=== PATIENT | female | born 1970 | race Caucasian/White ===

== ENCOUNTER 2019-11-25 14:47 | Outpatient (CLI) | payer OTHER, SELFPAY ==
--- NOTE | ~2019-11-25 | XR_ITS ---
XR lumbar spine 2-3V DATE: 11/25/2019 15:14 INDICATION: Back pain, worse on the left TECHNIQUE: AP, lateral, coned lateral lumbosacral views COMPARISON: 08/26/2016 MRI lumbar spine FINDINGS: There is rotatory levoscoliosis of the lower thoracic and lumbar spine measuring 21 degrees from T12 to L4. There is moderate degenerative disc disease throughout the lumbar and lumbosacral spine. No fracture or bone destruction or spondylolisthesis. The included lower thoracic and lumbar pedicles are intact. The sacroiliac joints appear normal. IMPRESSION: 21 degrees rotatory levoscoliosis of the lower thoracic and lumbar spine Multilevel degenerative disc disease Reviewed, dictated and finalized at location B.
== END 2019-11-25 14:48 | disposition home or self-care (01) ==
LOC: ANHIMG 14:55
PROVIDERS: PCP Internal Medicine; Visit Provider Clinical Nurse Specialist
DX: M51.36 Other intervertebral disc degeneration, lumbar region (principal)
CPT/HCPCS: 72100

== ENCOUNTER 2020-03-26 12:07 | Outpatient (NON) | payer OTHER, SELFPAY ==
[2020-03-27 06:43] LABS: SARS-CoV-2 RNA PCR Negative
== END 2020-03-26 12:08 ==
LOC: ANHCOVIDDT 12:10
PROVIDERS: Visit Provider Clinical Nurse Specialist
DX: J02.9 Acute pharyngitis, unspecified (principal)
CPT/HCPCS: 87635; C9803; U0003

== ENCOUNTER 2020-03-27 11:40 | Outpatient (CLI) | payer OTHER, SELFPAY ==
--- NOTE | ~2020-03-27 | XR_ITS ---
EXAMINATION: XR chest 2V EXAM DATE: 03/27/2020 12:03 INDICATION: R06.02 - Shortness of breath TECHNIQUE: Frontal and lateral projections of the chest obtained and reviewed. Comparison is made to prior examination from 04/18/2016. FINDINGS: The lungs are clear. There are no pleural effusions. The cardiomediastinal silhouette is within normal limits. There is no pneumothorax suspected. The bones and soft tissues are unremarkab le. IMPRESSION: No acute cardiopulmonary findings. Reviewed, dictated and finalized at location A. ECT DEVELOPMENT MANAGER
== END 2020-03-27 11:41 | disposition home or self-care (01) ==
PROVIDERS: PCP Internal Medicine; Visit Provider Clinical Nurse Specialist
DX: R06.02 Shortness of breath (principal)
CPT/HCPCS: 71046

== ENCOUNTER → 2021-07-08 15:39 | Outpatient (CLI) | payer OTHER, SELFPAY ==
--- NOTE | ~2021-07-08 | XR_ITS ---
EXAMINATION: XR chest 2V DATE: 07/08/2021 15:54 INDICATION: Wheezing. Cough and shortness of breath. TECHNIQUE: Frontal and lateral views of the chest were obtained. COMPARISON: Chest 2 views 03/27/2020, CT abdomen and pelvis 06/12/2018 FINDINGS: The chest demonstrates clear lungs without pneumonia, pleural effusion, or pneumothorax. Th e heart size is normal. IMPRESSION: 1. No acute cardiopulmonary disease. Reviewed, dictated and finalized at location A. BILITATION CASE COORDINATOR
== END ==
PROVIDERS: Visit Provider Family Medicine
DX: R06.2 Wheezing (principal)
CPT/HCPCS: 71046

== ENCOUNTER → 2021-08-07 11:19 | Outpatient (CLI) | payer OTHER, SELFPAY ==
--- NOTE | ~2021-08-07 | US_ITS ---
EXAMINATION: US soft tissue head and neck DATE: 08/07/2021 11:31 INDICATION: Mass posterior to left ear. TECHNIQUE: Multiple grayscale and Doppler ultrasound images of the head and neck were obtained. COMPARISON: None FINDINGS: There is a normal subcutaneous lymph node in the patient's area of concern posterior to lef t ear. IMPRESSION: 1. Normal lymph node in the patient's area of concern posterior to left ear. Reviewed, dictated and finalized at location E.
== END ==
PROVIDERS: Visit Provider Family Medicine
DX: R22.0 Localized swelling, mass and lump, head (principal)
CPT/HCPCS: 76536

== ENCOUNTER 2021-11-10 07:48 | Outpatient (CLI) | payer OTHER, SELFPAY ==
--- NOTE | 2021-11-15 21:21 | WPDHOMESLEEP ---
Sleep Study - Home Unattended Date of Study: 11/10/21 Ordering Provider: Olive Bianchi NP Interpreting Provider: Le Olguin, DO Home Sleep Study Type: Watch PAT Height: 1.68 m Weight: 138.346 kg Body Mass Index: 49.2 Neck Circumference (inches): 17.5 [place]: 8 Reason for Sleep Study Unrefreshing sleep Sleep History The patient is a 51-year-old female with depression, GERD, seasonal allergies and hypertension that had a sleep study ordered for evaluation of sleep apnea. The patient denies awakening from sleep short of breath. She denies awakening at night with heartburn, belching or cough. She occasionally snores but is rarely loud enough that others complain. She frequently has trouble sleeping when she has a cold. She denies waking up gasping for air throughout the night. She denies having breathing problems at night observed by herself or others. She denies sweating excessively at night. She denies having heart palpitations or irregular heartbeats during the night. She occasionally falls asleep during the day but never while driving. She denies sleep paralysis, cataplexy and hypnagogic / hypnopompic hallucinations. She denies having trouble at school or work due to sleepiness. She denies feeling afraid of going to sleep. She denies having nightmares. She occasionally remembers her dreams. She occasionally has thoughts racing through her mind she rarely feels sad or depressed. She occasionally has anxiety. She occasionally has muscular tension. She denies noticing parts of her body jerk. She denies kicking during the night. She occasionally has crawling and aching feelings in her legs and occasionally has leg pain during the night. She denies grinding her teeth during sleep awakening with morning jaw pain. She occasionally is bothered by pain during the day but rarely awakened by pain during the night. He occasionally wakes up feeling stiff in the morning. She rarely wakes up with sore achy muscles. She rarely wakes up with pain in the neck, spine or other joints. She goes to bed between 10-11 p.m. on both weekdays and weekends. It takes her 30 minutes to 2 hours to fall asleep. She wakes up twice throughout the night to urinate. She can fall back asleep within 5-10 minutes. She wakes up at 6:00 a.m. on weekdays and 7:00 a.m. on the weekends. She typically gets 5-7 hours of sleep per night. She will stay in bed for 30 minutes to an hour after waking up in the morning. She currently lives with her . She will occasionally consume caffeinated beverages within 2 hours of bedtime. She does not engage in physical exercise before bedtime. She will watch television before falling asleep. She will occasionally take naps in the afternoon or the evening and they are refreshing. She drinks 1-2 caffeinated beverages per day. She denies tobacco, alcohol and recreational drug use. FORMERLY [facility] Past Medical History Medical History Achilles tendon injury Acid reflux Chicken pox Fatigue Hypersomnia Hypertension Morbid obesity with BMI of 45.0-49.9, adult Nodule of finger of both hands Osteoarthritis Prediabetes Prediabetes Screening for thyroid disorder Snoring Surgical History Surgical History Delivery by section x2 H/O dilation and curettage H/O tubal ligation History of carpal tunnel release S/P ACL reconstruction Family History Family History Father Hypertension Mother Breast cancer Lymphoma Social History Social History Smoking status: Never smoker Alcohol intake: current Alcohol use details: rarely Medications Home Medications Medication Instructions Recorded Confirmed Type citalopram 40 mg tablet 40 mg PO DAILY 04/17/19 10/19/21 Histo
[2021-11-15 21:27] VITALS: BMI 49.2
--- NOTE | 2022-01-05 12:00 | SLEEP ---
PT HAS RECEIVED MACHINE IS GOING TO START USING THIS WEEKEND
--- NOTE | 2022-03-30 14:46 | SLEEP ---
pt had cold symptoms and stopped usage of pap device
--- NOTE | 2022-07-29 12:58 | SLEEP ---
pt is not using pt lost 70 lbs
== END 2021-11-11 10:12 | disposition home or self-care (01) ==
LOC: ANHCSM 07:49
PROVIDERS: PCP Nurse Practitioner Family; Visit Provider Nurse Practitioner Family
DX: G47.33 Obstructive sleep apnea (adult) (pediatric) (principal); G47.10 Hypersomnia, unspecified; R06.83 Snoring
CPT/HCPCS: 95800

== ENCOUNTER → 2022-01-07 09:48 | Outpatient (CLI) | payer OTHER, SELFPAY ==
--- NOTE | ~2022-01-07 | XR_ITS ---
EXAMINATION: HAND-NEAL ARTHRITIS 3+VIEWS DATE: 01/07/2022 10:08 INDICATION: Suppurative hidradenitis TECHNIQUE: Posteroanterior, lateral, and oblique views of the left and of the right hands as well as a ballcatchers view of both hands were obtained. COMPARISON: None. FINDINGS: Bone alignment is normal at the bilateral hands and wrists. No fractures. Polyarticular osteoarthriti s, severe at the bilateral first carpometacarpal joints, moderate severity at the right second and th ird distal interphalangeal joints and mild at the bilateral distal radioulnar and triscaphe joints th e majority of the remaining interphalangeal joints and many of the bilateral metacarpophalangeal join ts. No erosions to suggest inflammatory arthritis. Soft tissue unremarkable. IMPRESSION: 1. Relatively symmetric pattern of polyarticular osteoarthritis, severe at the first carpal metacarpa l joints, moderate at a few distal interphalangeal joints and otherwise mild. Reviewed, dictated and finalized at location A. IMPRESSION: 1. Relatively symmetric pattern of polyarticular osteoarthritis, severe at the first carpal metacarpal joints, moderate at a few distal interphalangeal joints and otherwise mild.
== END ==
PROVIDERS: PCP Nurse Practitioner Family; Visit Provider Internal Medicine
DX: R76.8 Other specified abnormal immunological findings in serum (principal); R22.33 Localized swelling, mass and lump, upper limb, bilateral; R23.8 Other skin changes; L73.2 Hidradenitis suppurativa; M19.042 Primary osteoarthritis, left hand; M19.041 Primary osteoarthritis, right hand
CPT/HCPCS: 73130

== ENCOUNTER 2022-01-11 13:25 | Outpatient (CLI) | payer OTHER, SELFPAY ==
--- NOTE | ~2022-01-11 | US_ITS ---
EXAMINATION: US pelvic complete w TV DATE: 01/11/2022 14:34 INDICATION: Postmenopausal bleeding. TECHNIQUE: Multiple transabdominal and transvaginal sonographic images of the pelvis were obtained. COMPARISON: CT abdomen and pelvis 06/12/2018 FINDINGS: TRANSABDOMINAL ULTRASOUND: There is no free fluid in the pelvis. TRANSVAGINAL ULTRASOUND: The uterus measures 10.0 x 3.9 x 3.9 cm. The endometrial complex is obscured. There is a 3.0 x 1.3 x 1.6 cm hypoechoic mass in the endocervical canal and lower uterine segment. The ovaries are not visua lized. IMPRESSION: 1. 3.0 x 1.3 x 1.6 cm hypoechoic mass in the endocervical canal and lower uterine segment, similar to that seen on 06/12/2018. This finding may be hematoma. Malignancy is not excluded. Biopsy is recommend ed. Reviewed, dictated and finalized at location A. IMPRESSION: 1. 3.0 x 1.3 x 1.6 cm hypoechoic mass in the endocervical canal and lower uteri ne segment, similar to that seen on 06/12/2018. This finding may be hematoma. Mal ignancy is not excluded. Biopsy is recommended.
== END 2022-01-11 13:26 | disposition home or self-care (01) ==
LOC: ANHIMG 13:27
PROVIDERS: PCP Nurse Practitioner Family; Visit Provider Nurse Practitioner
DX: N95.0 Postmenopausal bleeding (principal); R93.89 Abnormal findings on diagnostic imaging of other specified body structures
CPT/HCPCS: 76830; 76856

== ENCOUNTER 2022-02-21 00:30 | Day surgery (SDC) | payer OTHER, SELFPAY ==
[2022-02-17 17:37] VITALS: BMI 44.1
--- NOTE | 2022-02-17 17:50 | PC.NURSE ---
Report to the Outpatient Waiting Room, entrance under the green pavilion located off [facility], at time 0830 on date 02/21/22. OR Time: _1030__. Time changes happen often and if your time is changed the preop area will call you the afternoon before. - You and your visitor will be asked to self-screen and do not enter if you have any COVID symptoms. - We encourage only one visitor and NO visitors under age 16 are allowed at this time. Your visitor will receive communication by the phone number that is given day of service. - The patient visitor is requested to social distance or may leave the building when not with patient due to restrictions. - A mask is required within the hospital. Patients may have clear liquids (water, carbonated beverages, clear teas, apple juice) until 3 hours prior to surgery with a maximum of 20 ounces. - No food from midnight until time of surgery - Infants may have breast milk until 4 hours before surgery, formula 6 hours prior to surgery. - Children will be allowed to drink immediately following surgery. If applicable, please bring a bottle or sippy cup to assist with drinking. Juice, water, soda, and popsicles are readily available. For infants on formula, please bring formula the day of surgery. Pacifiers are allowed. Take the following medications with a SIP of water the morning of surgery: metoprolol Medications to discontinue per physician _vitamins/supplements__ Date to take last dose_02/18/22_ Please no make-up, nail syriac, hairspray, perfume, deodorant, or body powder the day of surgery. No jewelry (including any body piercings) or valuables the day of surgery, leave them at home. Please take a shower or bath the night before, or the morning of, surgery with an antibacterial soap. Wear comfortable, loose fitting clothing. Children are encouraged to wear pajamas. - Jewelry must be removed prior to entering the operating room. Rings and piercings that are not removed may be cut off. - The hospital will not accept responsibility for valuables. - Please leave all valuables, including medications, at home the day of surgery. If you are going home after surgery, a licensed hook up driver must drive you home. - NO public transportation without another adult. - We recommend that an adult stay with you for 24 hours following discharge. - We also recommend that you do not drive, make important decision, drink alcoholic beverages, or take any drugs that were not prescribed by your health care provider for at least 24 hours after your discharge time. For Pediatric surgeries, we recommend two adults accompany the child home. Follow any additional instructions given to you from your surgeon. If you or anyone in your household have experienced Covid symptoms in the past week, please notify your surgeon or the nurse liaison at the phone number below for possible testing. Telephone instructions given to Rosalee Deutsch and asked if any additional questions and then verbalized understanding. Patient advised to call surgeon office or pre surgery nurse liaison [phone] if any additional questions.
--- NOTE | 2022-02-21 08:09 | WPDHPUPDATE1 ---
History and Physical Update Update Date/Time: 02/21/22 08:09 History and Physical has been reviewed, including an updated exam of the patient. There are NO changes in the patient's condition. Risks, benefits, and alternatives have been discussed and questions answered. Patient agrees to proceed with procedure.
--- NOTE | 2022-02-21 08:10 | PM.HPGS ---
History of Present Illness History of Present Illness Consent: Risks, benefits, and alternatives have been discussed and questions answered. Patient agrees to proceed with procedure. Chief complaint: Post Menopausal Bleeding Narrative: Constance Deutsch is a 51 year old female who is 2 years into menopause with an episode of postmenopausal bleeding. Pelvic ultrasound states endometrial complex is obscured. There is a 3x1.3x1.6 hypoechoic lesion in the endocervical and lower uterine segment. It was recommended to proceed with D&C hysteroscopy. Risks of infection, bleeding, perforation, and fluid imbalance were reviewed. Possible pathology was also discussed. Patient voices understanding and agrees to proceed. Review of Systems Review of Systems: not repeated day of surgery; patient states no changes in status PMFSH Past Medical History Medical History (Updated 02/21/22 @ 08:16 by Siri Rivers MD) Achilles tendon injury Acid reflux DHRUV positive Hypertension Morbid obesity with BMI of 45.0-49.9, adult Osteoarthritis Prediabetes Surgical History Surgical History (Updated 02/21/22 @ 08:15 by Siri Rivers MD) Delivery by section x2 H/O dilation and curettage H/O tubal ligation History of carpal tunnel release History of endometrial ablation S/P ACL reconstruction Family History Family History Father Hypertension Mother Breast cancer Lymphoma Social History Social History Smoking status: Never smoker Alcohol intake: never Alcohol use details: rarely Substance use: never Living arrangements: with family Spiritual care concerns: No Meds Home Medications and Allergies Home Medications Medication Instructions Recorded Confirmed Type citalopram 40 mg tablet 40 mg PO DAILY 04/17/19 02/17/22 History loratadine 10 mg tablet (Claritin) 10 mg PO DAILY 04/17/19 02/17/22 History oxybutynin chloride 5 mg tablet 5 mg PO DAILY 04/17/19 02/17/22 History metoprolol succinate 50 mg 50 mg PO DAILY #90 tabs 07/07/21 02/17/22 Rx tablet,extended release 24 hr (Toprol XL) diclofenac sodium 75 mg See Rx Instructions .Route 08/16/21 02/17/22 Rx tablet,delayed release .COMPLEX #90 tabs lansoprazole 30 mg capsule,delayed 30 mg PO DAILY #90 caps 09/01/21 02/17/22 Rx release ascorbic acid (vitamin C) 1 tab-cap PO DAILY 10/19/21 02/17/22 History bupropion HCl 150 mg 24 hr tablet, 150 mg PO QAM 10/19/21 02/17/22 History extended release cholecalciferol (vitamin D3) 125 125 mcg PO DAILY 10/19/21 02/17/22 History mcg (5,000 unit) capsule mecobalamin (vitamin B12) 5,000 5,000 mcg PO 3XW 10/19/21 02/17/22 History mcg disintegrating tablet zinc acetate 50 mg (zinc) capsule 50 mg PO DAILY 10/19/21 02/17/22 History (Galzin) lisinopril 20 mg tablet 20 mg PO DAILY #30 tabs 01/14/22 02/17/22 Rx Allergies Allergy/AdvReac Type Severity Reaction Status Date / Time Sulfa (Sulfonamide Allergy Unknown Hives Verified 12/03/21 11:08 Antibiotics) Exam Const: General: healthy appearing and alert Orientation/consciousness: patient oriented x3 Resp: Effort & Inspection: normal respiratory effort GI: GI Palp: Yes Soft to palpation, No Tenderness to palpation present (GI) and No Palpable mass present : External Female Exam: normal external appearance Speculum Exam - Vagina: normal appearance of the vagina and normal vaginal discharge Speculum Exam - Cervix: normal appearance of the cervix Bimanual exam- vagina & uterus: uterine size normal and consistency normal Bimanual Exam- Adnexa, other: normal adnexae and No adnexal tenderness Neuro: General: patient oriented x3 Assessment and Plan Assessment and plan (1) Post-menopausal bleeding: Code(s): N95.0 - Postmenopausal bleeding Status: Acute Assessment and Plan: plan to
[2022-02-21] MEDS: ACETAMINOPHEN 500 MG TABLET 1000 MG PO (09:00)
[2022-02-21] MEDS: LACTATED RINGERS 1,000 ML 30 ML IV CONT ×2 (09:00→12:00)
[2022-02-21 09:03] VITALS: BP 142/81; PULSE 73; RESP 16; TEMP 36.6; O2SAT 97
--- NOTE | 2022-02-21 09:30 | WPDANESEPPF ---
Anes - Initial Pre Proc Eval Procedure: Operation Date: 02/21/22 10:30 Proposed Procedures p Hysteroscopy with Dilation and Curettage - Siri Rivers MD Date/Time: 02/21/22 09:30 Surgeon: Siri Rivers MD Pre Op Diagnosis: Post Menopausal Bleeding Patient Data Age: 51 Gender: F Height: 1.68 m Weight: 123.8 kg Last Vital Signs Temp 36.6 C 02/21/22 09:03 Pulse 73 02/21/22 09:03 Resp 16 02/21/22 09:03 BP 142/81 H 02/21/22 09:03 Pulse Ox 97 02/21/22 09:03 O2 Del Method Room Air 02/21/22 09:03 Allergies Allergy/AdvReac Type Severity Reaction Status Date / Time Sulfa (Sulfonamide Allergy Unknown Hives Verified 02/21/22 09:02 Antibiotics) Home Medications Medication Instructions Recorded Confirmed Type citalopram 40 mg tablet 40 mg PO DAILY 04/17/19 02/21/22 History loratadine 10 mg tablet (Claritin) 10 mg PO DAILY 04/17/19 02/21/22 History oxybutynin chloride 5 mg tablet 5 mg PO DAILY 04/17/19 02/21/22 History metoprolol succinate 50 mg 50 mg PO DAILY #90 tabs 07/07/21 02/21/22 Rx tablet,extended release 24 hr (Toprol XL) diclofenac sodium 75 mg See Rx Instructions .Route 08/16/21 02/21/22 Rx tablet,delayed release .COMPLEX #90 tabs lansoprazole 30 mg capsule,delayed 30 mg PO DAILY #90 caps 09/01/21 02/21/22 Rx release ascorbic acid (vitamin C) 1 tab-cap PO DAILY 10/19/21 02/21/22 History bupropion HCl 150 mg 24 hr tablet, 150 mg PO QAM 10/19/21 02/21/22 History extended release cholecalciferol (vitamin D3) 125 125 mcg PO DAILY 10/19/21 02/21/22 History mcg (5,000 unit) capsule mecobalamin (vitamin B12) 5,000 5,000 mcg PO 3XW 10/19/21 02/21/22 History mcg disintegrating tablet zinc acetate 50 mg (zinc) capsule 50 mg PO DAILY 10/19/21 02/21/22 History (Galzin) lisinopril 20 mg tablet 20 mg PO DAILY #30 tabs 01/14/22 02/21/22 Rx Patient hx anesthesia problems: none Family hx anesthesia problems: none Results Review: All pre-operative results and documents have been reviewed as part of the pre-operative evaluation. FORMERLY [facility] Past Medical History Medical History Achilles tendon injury Acid reflux DHRUV positive Hypertension Morbid obesity with BMI of 45.0-49.9, adult Osteoarthritis Prediabetes Surgical History Surgical History (Updated 02/21/22 @ 08:15 by Siri Rivers MD) Delivery by section x2 H/O dilation and curettage H/O tubal ligation History of carpal tunnel release History of endometrial ablation S/P ACL reconstruction Family History Family History Father Hypertension Mother Breast cancer Lymphoma Social History Social History Smoking status: Never smoker Alcohol intake: never Alcohol use details: rarely Substance use: never Living arrangements: with family Spiritual care concerns: No Anes - Eval Final PreProcedure Day of Procedure 02/21/22 09:30 Patient weight: morbidly obese Heart: regular rate and rhythm Lungs: clear to auscultation Airway: Mallampati scale class II Neurological: alert and oriented Last oral intake: >/= 8 hours ASA classification: III Emergent: no Anesthetic plan: proceed Anesthesia type and monitoring: general GIVS and standard monitoring Results Review: All pre-operative results and documents have been reviewed as part of the pre-operative evaluation. Informed Consent: The patient's anesthetic plan and its attendant risks and benefits were discussed with the patient/family/POA. Questions were solicited and answers provided to the satisfaction of the patient/family/POA.
[2022-02-21] MEDS: LIDOCAINE 1% BUFFERED WITH 8.4% SODIUM BICARB 1 ML SYRINGE 10 ML INFILTRATE (10:31)
--- NOTE | 2022-02-21 11:07 | P.OP_ITS ---
Procedure Note - Detailed Date of Procedure 02/21/22 Pre-op Diagnosis Post Menopausal Bleeding Post-op Diagnosis Same Procedure Performed Failed D&C hysteroscopy Surgeon Siri Rivers MD Anesthesia MAC Findings the cervix is pulled up and to the patient's left. The upper vagina is stenotic. The cervical os is not visible. Description of Procedure The patient is taken to the operating room and placed under anesthesia in the dorsal lithotomy position. She was prepped and draped in the usual sterile fashion. The Graves speculum was placed in the cervix is not visible. The Lopez speculum was requested and placed. The speculum is screwed in place and the ring forceps used to reduce the rectocele the posterior lip of what is suspected to be the cervix is grasped with a tenaculum. A 2nd tenaculum is then placed on what appears to be possible anterior cervix. No visible os is noted. The small dilator and the os Finders are used without success to open the external os. During this process the tenaculum pulled through. The same pr ocess is used to grasp the posterior and then the anterior lip. The small 4 Hegar dilator is again used and with significant force entered through the suspected external os. The angle is very anteverted. The 5 dilator is able to go through the same pathway. Upon attempting to place the 6 dilator, the tenaculum pulled off. The entire process was repeated and the pathway found with difficulty. A 6 dilator will not go through this pathway. The camera is placed in an attempt to hydrate dilated into the proper place. The pathway appears to be a false passage. The camera is maneuvered an attempt to look for the proper pathway. This is not successful. After 30 minutes of attempting the entire process I made the decision to abort the procedure. Patient was awakened from anesthesia and taken to recovery in stable condition. Sponge, needle, and instrument counts are correct per the OR staff. Fluid deficit is consistent with a probable perforation [id number]. Estimated Blood Loss 5 Drains No Packing No Pathology None sent Complications Other complications ( Inability to enter endometrial cavity with suspected uterine perforation) Condition Stable Disposition PACU
[2022-02-21 11:14] VITALS: BP 119/90; PULSE 65; RESP 18; O2SAT 92
[2022-02-21 11:45] VITALS: BP 119/90; PULSE 76; RESP 16; O2SAT 96
[2022-02-21 12:15] VITALS: BP 120/59; PULSE 75; RESP 16
[2022-02-21 12:45] VITALS: BP 118/64; PULSE 56; RESP 16
== END 2022-02-21 12:50 | disposition home or self-care (01) ==
PROVIDERS: PCP Nurse Practitioner Family; Visit Provider Obstetrics & Gynecology Gynecology
PROC: 0U5B8ZZ Destruction of Endometrium, Via Natural or Artificial Opening Endoscopic (ICD-10-PCS; CPT 58563; principal; 2022-02-21 10:30)
DX: N95.0 Postmenopausal bleeding (principal); N89.5 Stricture and atresia of vagina; I10 Essential (primary) hypertension; K21.9 Gastro-esophageal reflux disease without esophagitis; R73.03 Prediabetes; M19.90 Unspecified osteoarthritis, unspecified site; E66.01 Morbid (severe) obesity due to excess calories; Z68.41 Body mass index [BMI] 40.0-44.9, adult; Z53.8 Procedure and treatment not carried out for other reasons
CPT/HCPCS: 58558; A9270; J2250; J2704; J3010; J7120

== ENCOUNTER 2022-06-14 09:16 | Emergency (ER) | payer OTHER, SELFPAY ==
[2022-06-14 09:30] VITALS: BP 127/62; PULSE 64; RESP 16; TEMP 36.6; O2SAT 98
--- NOTE | 2022-06-14 09:57 | ED.URI ---
HPI - URI/Sore Throat General Chief Complaint: Upper Respiratory Infection Stated Complaint: sore throat Time Seen by Provider: 06/14/22 09:57 History of Present Illness HPI Narrative: 52-year-old female presented for complaint of sore throat, nausea, headache, and fatigue, onset yesterday. Denies sinus congestion,vomiting, diarrhea, fevers or chills. Taking ibuprofen for headache. 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 States these are the symptoms when she gets strep throat. Related Data Home Medications Medication Instructions Recorded Confirmed citalopram 40 mg tablet 40 mg PO DAILY 04/17/19 06/14/22 loratadine 10 mg tablet (Claritin) 10 mg PO DAILY 04/17/19 06/14/22 oxybutynin chloride 5 mg tablet 5 mg PO DAILY 04/17/19 06/14/22 ascorbic acid (vitamin C) 1 tab-cap PO DAILY 10/19/21 06/14/22 bupropion HCl 150 mg 24 hr tablet, 150 mg PO QAM 10/19/21 06/14/22 extended release cholecalciferol (vitamin D3) 125 125 mcg PO DAILY 10/19/21 06/14/22 mcg (5,000 unit) capsule mecobalamin (vitamin B12) 5,000 5,000 mcg PO 3XW 10/19/21 06/14/22 mcg disintegrating tablet zinc acetate 50 mg (zinc) capsule 50 mg PO DAILY 10/19/21 06/14/22 (Galzin) Allergies Allergy/AdvReac Type Severity Reaction Status Date / Time Sulfa (Sulfonamide Allergy Unknown Hives Verified 06/14/22 10:01 Antibiotics) Review of Systems Review of Systems: per HPI [facility] Past Medical History Medical History Achilles tendon injury Acid reflux DHRUV positive Hypertension Morbid obesity with BMI of 40.0-44.9, adult Morbid obesity with BMI of 45.0-49.9, adult Osteoarthritis Prediabetes Surgical History Surgical History Delivery by section x2 H/O dilation and curettage H/O tubal ligation History of carpal tunnel release History of endometrial ablation S/P ACL reconstruction Family History Family History Father Hypertension Mother Breast cancer Lymphoma Social History Social History Smoking status: Never smoker Alcohol intake: never Substance use: never Lack of Transportation: No Lack of Food: Never True Current Housing: I Have Housing Concerned About Future Housing: No Difficulty Paying Gas/Electric Bills: No Difficulty Paying for Meds: No Currently Unemployed: No Education: Master's Degree or Higher Difficulty w/ Childcare or Family Care: No Living arrangements: with family Spiritual care concerns: No Exam Narrative: GENERAL: Ill-appearing, no acute distress. EYES: conjunctivae clear ENT: Mucous membranes moist. TMs pearly ham with normal light reflex bilaterally; no tragal tenderness. Oropharynx erythematous without lesions. Tonsils enlarged and without exudate. No drooling, no hoarseness, no trismus, uvula midline. No tripod positioning, hot potato voice, or soft palate swelling. NECK: Supple. No lymphadenopathy CHEST: Clear to auscultation, breath sounds equal. No respiratory distress, speaks in full sentences. HEART: Regular rate and rhythm. No murmur heard. SKIN: Warm, dry, no rash. NEURO: Alert and oriented x3. Course Course Emergency Course: Patient is aware of diagnosis, understands and agrees to treatment plan. Anticipatory guidance given. Patient agrees to follow-up as directed and is aware of reasons to seek care at the emergency department. Portions of this record may have been created with voice recognition software Level of Care: Express Care Visit Vital Signs Vital signs: Vital Signs Temperature 97.9 F 06/14/22 09:30 Pulse Rate 64 06/14/22 09:30 Respiratory Rate 16 06/14/22 09:30 Blood Pressure 127/62 06/14/22 09:30 Pulse Oximetry 98 06/14/22 09:30 Oxygen Delivery Room Air
== END 2022-06-14 10:25 | disposition home or self-care (01) ==
PROVIDERS: Emergency Provider Nurse Practitioner Family; PCP Nurse Practitioner Family
DX: J02.0 Streptococcal pharyngitis (principal); K21.9 Gastro-esophageal reflux disease without esophagitis; I10 Essential (primary) hypertension; M19.90 Unspecified osteoarthritis, unspecified site; R73.03 Prediabetes; E66.01 Morbid (severe) obesity due to excess calories; Z68.39 Body mass index [BMI] 39.0-39.9, adult
CPT/HCPCS: 87880; 99213; G0463

== ENCOUNTER 2022-08-31 14:53 | Outpatient (CLI) | payer OTHER, SELFPAY ==
--- NOTE | ~2022-08-31 | XR_ITS ---
EXAMINATION: XR chest 2V Exam Date/Time: 08/31/2022 15:00 CDT HISTORY: SARCOIDOSIS Comparison: 07/08/2021. RESULT: Lines, tubes, and devices: None. Lungs and pleura: Clear. Cardiomediastinal silhouette: Stable. Other: No acute osseous or upper abdominal finding. IMPRESSION: No acute cardiopulmonary process. Reviewed, dictated and finalized at location K.
== END 2022-08-31 14:54 | disposition home or self-care (01) ==
LOC: ANHIMG 14:57
PROVIDERS: PCP Nurse Practitioner Family; Visit Provider Dermatology
DX: D86.9 Sarcoidosis, unspecified (principal)
CPT/HCPCS: 71046

== ENCOUNTER 2022-11-15 08:09 | Outpatient (CLI) | payer OTHER, SELFPAY ==
--- NOTE | 2022-12-01 20:12 | WPDHOMESLEEP ---
Sleep Study - Home Unattended Date of Study: 11/15/22 Ordering Provider: Olive Bianchi NP Interpreting Provider: Fadia Hernandez MD Home Sleep Study Type: Watch PAT Height: 1.68 m Weight: 103.419 kg Body Mass Index: 36.8 Neck Circumference (inches): 15.75 [place]: 3 Reason for Sleep Study History of DARRION, weight loss. Retesting to see if weight loss resolved DARRION. HST 11/10/21 ? Moderate DARRION with overall AHI 25.5 and desaturation to 82%. APAP was recommended. Sleep History Constance Deutsch is a 52-year-old female with history of hypertension and obesity who underwent a home sleep test for re-evaluation after losing over 60lb to see if weight loss resolved her DARRION. She has not been wearing CPAP lately. She never awakens from sleep short of breath. She never awakens at night with heartburn, belching or cough.? She occasionally snores. She never snores loudly enough that others complain. She occasionally has trouble sleeping when she has a cold. She never suddenly wakes up gasping for breath during the night. She never has breathing problems at night. She number sweats excessively at night. She never notices her heart pounding or beating irregularly during the night. She never falls asleep during the day. She never falls asleep while driving. She never experiences loss of muscle tone with strong emotion. She constantly has trouble at work because of sleepiness. She never feels paralyzed on waking or falling asleep. She never experiences vivid dreams upon waking or falling asleep. She does not feel afraid of going to sleep. She does not have nightmares. She occasionally recalls her dreams. She occasionally has thoughts racing through her mind. She rarely feels sad or depressed. She occasionally feels anxiety or worry about things. She does not notice parts of her body jerk. She never kicks during the night. She never feels crawling or aching feelings in her legs. She never feels leg pain at night. She never grinds her teeth or has morning jaw pain. She occasionally feels bothered by pain during the day and never awakened by pain during the night. She rarely wakes up feeling stiff, sore, and achy in the morning. Normal bedtime is around 8pm on the weekdays and 8:30pm to 9pm on the weekends, taking 1 hour to fall asleep. She typically gets about 5 to 7 hours of sleep per night. Her wake up time is around 6am on the weekdays and 7am on the weekends. She typically wakes up around once per night. Habits:? Never tobacco smoker. Drinks about 1 caffeinated beverage per day. No alcohol or recreational substances. [facility] Past Medical History Medical History (Updated 12/01/22 @ 20:14 by Fadia Hernandez MD) Achilles tendon injury Acid reflux DHRUV positive B12 deficiency BMI 38.0-38.9,adult Hypertension Low back pain radiating to left leg Morbid obesity with BMI of 40.0-44.9, adult Morbid obesity with BMI of 45.0-49.9, adult Obstructive sleep apnea Osteoarthritis Prediabetes Sarcoidosis of skin Surgical History Surgical History Delivery by section x2 H/O dilation and curettage H/O tubal ligation History of carpal tunnel release History of endometrial ablation S/P ACL reconstruction Family History Family History Father Hypertension Mother Breast cancer Lymphoma Social History Social History Smoking status: Never smoker Alcohol intake: never Substance use: never Lack of Transportation: No Lack of Food: Never True Current Housing: I Have Housing Concerned About Future Housing: No Difficulty Paying Gas/Electric Bills: No Difficulty Paying for Meds: No Currently Unemployed: No Education: Master's Degree or Higher Difficulty w/ Childcare or Family Care: No Living arrangements: with family Spiritual care concerns: No Medications Jacklyn
[2022-12-01 20:22] VITALS: BMI 36.8
== END 2022-11-16 14:38 | disposition home or self-care (01) ==
LOC: ANHCSM 08:18
PROVIDERS: PCP Nurse Practitioner Family; Visit Provider Nurse Practitioner Family
DX: G47.33 Obstructive sleep apnea (adult) (pediatric) (principal)
CPT/HCPCS: 95800

== ENCOUNTER 2023-02-17 15:52 | Outpatient (CLI) | payer OTHER, SELFPAY ==
--- NOTE | ~2023-02-17 | US_ITS ---
EXAMINATION: US pelvic complete w TV DATE: 02/17/2023 17:13 INDICATION: Postmenopausal bleeding Comparison:Ultrasound dated 01/11/2022 TECHNIQUE: Multiple transabdominal and endovaginal sonographic images of the pelvis performed. FINDINGS: The uterus measures 8.7 x 3.5 x 3.5 cm. The endometrial complex measures 5 mm. The right ovary measures 2.5 x 1.7 x 2.1 and the left ovary measures 2.3 x 1.4 x 1.7 cm. There are s mall follicles in each ovary. Normal doppler signal in both ovaries. There is no free fluid in the pelvis. There are no abnormal masses seen on either side. IMPRESSION: 1. Thickened endomtrial complex. The differential diagnosis includes endometrial hyperplasia, polyp a nd carcinoma. Biopsy is recommended. Reviewed, dictated and finalized at location A. IMPRESSION: 1. Thickened endomtrial complex. The differential diagnosis includes endometria l hyperplasia, polyp and carcinoma. Biopsy is recommended.
== END 2023-02-17 15:53 | disposition home or self-care (01) ==
LOC: ANHIMG 15:54
PROVIDERS: PCP Nurse Practitioner Family; Visit Provider Obstetrics & Gynecology Gynecology
DX: N95.0 Postmenopausal bleeding (principal); R93.89 Abnormal findings on diagnostic imaging of other specified body structures
CPT/HCPCS: 76830; 76856

== ENCOUNTER → 2023-10-05 13:34 | Outpatient (CLI) | payer OTHER, SELFPAY ==
--- NOTE | ~2023-10-05 | XR_ITS ---
EXAMINATION: XR lumbar spine min 4V DATE: 10/05/2023 14:02 INDICATION: Low back pain. TECHNIQUE: 5 views of lumbar spine were obtained. COMPARISON: Lumbar spine radiographs 11/25/2019 FINDINGS: There is 18 degrees levoscoliosis of thoracolumbar spine. There is mild chronic anterior we dging of L1 and L2 vertebral bodies. There is mildly decreased disc height at L2-L3, moderately decre ased disc height at L3-L4, mildly decreased disc height at L4-L5, and severely decreased disc height at L5-S1. There is multilevel severe facet joint osteoarthritis. IMPRESSION: 1. Severe lumbar spondylosis. 2. Thoracolumbar levoscoliosis. Reviewed, dictated and finalized at location A.
--- NOTE | ~2023-10-05 | XR_ITS ---
EXAMINATION: XR knee LT min 4V DATE: 10/05/2023 14:02 INDICATION: Left knee pain. TECHNIQUE: 4 views of left knee including standing views were obtained. COMPARISON: Left knee radiographs 05/04/2015 FINDINGS: There is lateral subluxation of patella. There is lateral subluxation of tibia respect to d istal femur. No fracture. There is severe tricompartmental osteoarthritis. No knee joint effusion. IMPRESSION: 1. Severe left knee osteoarthritis. Reviewed, dictated and finalized at location A.
== END ==
PROVIDERS: PCP Nurse Practitioner Family; Visit Provider Nurse Practitioner Family
DX: M43.06 Spondylolysis, lumbar region (principal); M41.85 Other forms of scoliosis, thoracolumbar region; M17.12 Unilateral primary osteoarthritis, left knee
CPT/HCPCS: 72110; 73564

== ENCOUNTER 2023-12-08 10:42 | Outpatient (CLI) | payer OTHER, SELFPAY ==
--- NOTE | ~2023-12-08 | MR_ITS ---
MRI of the left knee Clinical history: Pain Technique: Coronal proton density and proton density-weighted images, sagittal proton-density and T2 fat-sat images, and axial proton-density fat-saturated images were acquired. Findings: ACL is poorly delineated, possibly intact with mild increased signal, versus complete tear. Posterior cruciate ligament is intact. Medial collateral ligament is intact. Lateral collateral liga ment complex is intact. Popliteus tendon is intact. There is a radial tear at the posterior root of the medial meniscus. There is horizontal tear of the anterior horn of the lateral meniscus, probably extending to the body segment. There is severe tricompartmental osteoarthritis. There is extensive osteophyte formation throughout t he knee. There is mild chondromalacia of the patellofemoral compartment. There is extensive high-grad e chondromalacia of the medial compartment. There is moderate to high-grade chondral malacia extensiv ras involving the lateral tibial plateau. Extensor mechanism is intact. No significant joint effusion. No Vargas's cyst. Impression: Severe tricompartmental osteoarthritis, as detailed above. Radial tear of the posterior root of the medial meniscus. Horizontal tear of the anterior horn and body of the lateral meniscus. ACL poorly delineated. Correlate for degenerative signal of the ACL versus possible complete rupture. Correlate clinically for ACL laxity. Reviewed, dictated and finalized at location . Impression: Severe tricompartmental osteoarthritis, as detailed above. Radial tear of the posterior root of the medial meniscus. Horizontal tear of the anterior horn and body of the lateral meniscus. ACL poorly delineated. Correlate for degenerative signal of the ACL versus poss ible complete rupture. Correlate clinically for ACL laxity.
== END 2023-12-08 10:43 ==
LOC: MICIMG 10:43
PROVIDERS: PCP Nurse Practitioner Family; Visit Provider Orthopaedic Surgery Sports Medicine
DX: M17.12 Unilateral primary osteoarthritis, left knee (principal); S83.242A Other tear of medial meniscus, current injury, left knee, initial encounter; S83.282A Other tear of lateral meniscus, current injury, left knee, initial encounter; X58.XXXA Exposure to other specified factors, initial encounter
CPT/HCPCS: 73721

== ENCOUNTER 2024-02-26 08:47 | Outpatient (CLI) | payer OTHER, SELFPAY ==
--- NOTE | ~2024-02-26 | DEXA_ITS ---
Bone Density Report Name: BEN BENAVIDEZ Age: 53 Sex: Female Ethnicity: White Date of : 1970 Indication: postmenopausal; screening for osteoporosis; Referring Provider: DOMINGO, BEVERLY Study: Bone densitometry was performed. Exam Date: February 26, 2024 Accession number: [id number] Bone Density: Region BMD T-score Z-score Classification AP Spine(L1-L4) 1.554 4.6 5.7 Normal Femoral Neck (Left) 1.033 1.7 2.7 Normal Total Hip (Left) 1.213 2.2 2.9 Normal Femoral Neck (Right) 0.968 1.1 2.1 Normal Total Hip (Right) 1.212 2.2 2.9 Normal Femoral Neck Mean 1.000 1.4 2.4 Normal Total Hip Mean 1.213 2.2 2.9 Normal World Health Organization criteria for BMD impression classify patients as: Normal (T-score at or above -1.0), Osteopenia (T-score between -1.0 and -2.5), or Osteoporosis (T-score at or below -2.5). 10-year Fracture Risk: FRAX not reported because: All T-scores for Spine Total, Hip Total, Femoral Neck at or above -1.0 Clinical Information Provided by Patient: Has used the following medications: Vitamin D Patient maximum height was 64.5 Menopause Age: 51 No regular weight bearing exercise Does not regularly consume dairy products Drinks caffeinated beverages Onset of menses at age 11 Number of children 2 Impression: The patient has normal bone mass. Discussion: LOW RISK OF FRACTURE; BONE DENSITY IS WELL ABOVE THE MINIMUM DESIRABLE LEVEL AND ABOVE AVERAGE FOR AGE AND SEX AT ALL SKELETAL SITES TESTED. This person's bone density is above expected limits for age and sex. This is rarely clinically significant, but should be pursued if there are significant musculoskeletal complaints. The patient should follow a healthful lifestyle (good nutrition with adequate calcium and vitamin D, and appropriate weight-bearing exercise). Follow-Up: Consider repeating this study in 5 years or sooner if there is some new clinical indication. Reported by: ERLIN on 02/26/2024 12:28:00 PM. Reviewed, dictated and finalized at location A. [facility]
--- NOTE | ~2024-02-26 | MMUS_ITS ---
EXAMINATION: US breast LT limited, MM diagnostic davonte BI w michael HISTORY: Palpable left breast abnormality TECHNIQUE: Additional 3-D tomosynthesis images of the left breast were performed and synthetic 2-D im ages were generated. CAD analysis was submitted and interpreted. High resolution Limited left breast ultrasound was performed. COMPARISON: None BREAST PARENCHYMAL COMPOSITION: Not dense: There are scattered areas of fibroglandular density. FINDINGS: MAMMOGRAPHIC FINDINGS: There are no suspicious masses, calcifications or architectural distortion. There are normal-appearin g axillary lymph nodes. ULTRASOUND: Limited left breast ultrasound: At 3:00, 7 cm from the nipple in the area of palpable concern there i s a normal-appearing 6 mm intramammary lymph node. No sonographic evidence for malignancy. IMPRESSION: 1. No evidence for malignancy in either breast. 2. Routine yearly screening mammogram and regular clinical breast examination are recommended. BI-RADS Category 2: Benign finding(s). Reviewed, dictated and finalized at location B. IMPRESSION: 1. No evidence for malignancy in either breast. 2. Routine yearly screening mammogram and regular clinical breast examination a re recommended. BI-RADS Category 2: Benign finding(s).
== END 2024-02-26 08:48 | disposition home or self-care (01) ==
PROVIDERS: PCP Nurse Practitioner Family; Visit Provider Nurse Practitioner Women's Health
DX: N63.20 Unspecified lump in the left breast, unspecified quadrant (principal); R92.8 Other abnormal and inconclusive findings on diagnostic imaging of breast; Z78.0 Asymptomatic menopausal state
CPT/HCPCS: 76642; 77062; 77066; 77080; G0279

== ENCOUNTER 2024-04-01 13:01 | Emergency (ER) | payer OTHER, SELFPAY ==
[2024-04-01 13:25] VITALS: BP 176/95; PULSE 62; RESP 16; TEMP 36.3; O2SAT 97
--- NOTE | 2024-04-01 13:45 | ED_ITS ---
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 She reports that she is more tired than usual, she does not believe that she has had a fever. She does have the occasional body ache. She has been taking [id number] medications for her symptoms with minimal relief. Elevated blood pressure noted today. Patient reports that she is under quite a bit more stress than normal. She denies any chest pain or shortness of breath. Her primary care provider has called in azithromycin in for her symptoms, but patient feels as though it is better to be evaluated Related Data Home Medications Medication Instructions Recorded Confirmed bupropion HCl 150 mg 24 hr tablet, 150 mg PO QAM 10/19/21 04/01/24 extended release cholecalciferol (vitamin D3) 125 125 mcg PO DAILY 10/19/21 04/01/24 mcg (5,000 unit) capsule mecobalamin (vitamin B12) 5,000 5,000 mcg PO 3XW 10/19/21 04/01/24 mcg disintegrating tablet zinc acetate 50 mg (zinc) capsule 50 mg PO DAILY 10/19/21 04/01/24 (Galzin) Allergies Allergy/AdvReac Type Severity Reaction Status Date / Time Sulfa (Sulfonamide Allergy Mild Hives Verified 04/01/24 13:19 Antibiotics) Review of Systems Review of Systems: All systems reviewed & are unremarkable except as noted in HPI and below Constitutional: Constitutional: Reports no additional constitutional complaints, Reports chills and Reports lethargy ENT: Reports system reviewed and no additional complaints, except as documented Cardiovascular: Cardiovascular: Reports no additional cardiovascular complaints Respiratory: Respiratory: Reports no additional respiratory complaints, Reports change in phlegm color, Reports chest congestion and Reports cough Gastrointestinal: Gastrointestinal: Reports no additional gastrointestinal complaints PMFSH Past Medical History Medical History Achilles tendon injury Acid reflux Acute non-recurrent maxillary sinusitis DHRUV positive Anxiety B12 deficiency BMI 38.0-38.9,adult Depression Dyslipidemia Hypertension 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 Low back pain radiating to left leg Morbid obesity with BMI of 40.0-44.9, adult Morbid obesity with BMI of 45.0-49.9, adult Myalgia Obstructive sleep apnea Osteoarthritis Osteoarthritis of left knee severe Prediabetes Sarcoidosis of skin Surgical History Surgical History Delivery by section x2 H/O dilation and curettage H/O tubal ligation History of carpal tunnel release History of endometrial ablation S/P ACL reconstruction Family History Family History Father Hypertension Mother Breast cancer Lymphoma Social History Social History Smoking status: Never smoker Alcohol intake: never Substance use: never Lack of Transportation: No Lack of Food: Never True Current Housing: I Have Housing Concerned About Future Housing: No Difficulty Paying Gas/Electric Bills: No Difficulty Paying for Meds: No Currently Unemployed: No Education: Master's Degree or Higher Difficulty w/ Childcare or Family Care: No Living arrangements: with family Spiritual care concerns: No Exam Const: General: cooperative, no acute distress, alert and awake Orientation/consciousness: oriented to person, oriented to place and oriented to time HENMT: Head: normal to inspection Ears: TM's normal bilaterally Mouth: Yes moist mucous membranes Resp: Effort & Inspection: normal respiratory effort and able to speak in complete sentences Auscultation: clear to auscultation bilaterally, no crackles, no rales, no rhonchi, no wheezes and diminished lung sounds Cardio: Palpation: normal PMI Rate: regular rate Rhythm: regular rhythm Heart sounds: S1 normal heart sound present and S2 normal heart sound present Neuro: General: oriented to person, oriented to place and oriented to time Cranial nerves: Yes CN's II-XII intact bilaterally Psych: Appearance: grossly normal Thought process: Normal thought process present Insight: Good insight present (Psych) Judgement: Good judgement present (Psych) Course Course Level of Care: Express Care Visit Vital Signs Vital signs: Vital Signs Temperature 97.4 F L 04/01/24 13:25 Pulse Rate 62 04/01/24 13:25 Respiratory Rate 16 04/01/24 13:25 Blood Pressure 176/95 H 04/01/24 13:25 Pulse Oximetry 97 04/01/24 13:25 Oxygen Delivery Room Air 04/01/24 13:25 Temperature 97.4 F L 04/01/24 13:25 Pulse Rate 62 04/01/24 13:25 Respiratory Rate 16 04/01/24 13:25 Blood Pressure 176/95 H 04/01/24 13:25 Pulse Oximetry 97 04/01/24 13:25 Oxygen Delivery Room Air 04/01/24 13:25 MDM - URI/Sore Throat MDM Narrative Medical decision making narrative: teacher with symptoms of community-acquired pneumonia that is prevalent right now. No distress, including respiratory distress. She already has a Z-Buzz, add bronchodilator and course of prednisone. Elevated blood pressure discussed with patient. She does report she is medication compliant, admits that she is under an Extraordinary amount of stress. she is advised to follow with primary care provider. Emergency department for new or worse symptoms. Discharge instructions reviewed with patient, as well as provided in writing per nursing staff. The instructions also include specific and strict return/GO TO THE ER as well as f/u information. All questions have been answered, and the patient deny any further questions with discharge and discharge plan. Some parts of this dictation were generated by voice recognition software and may contain typographical and/or grammatical inaccuracies. Differential Diagnosis Differential diagnosis: Likely upper respiratory infection, otitis media, sinusitis, viral infection, influenza and pharyngitis Medical Records Attestation: I reviewed the patient's medical records. Discharge Plan Discharge Clinical Impression: Pneumonia Qualifiers: Pneumonia type: due to unspecified organism Laterality: unspecified laterality Lung location: unspecified part of lung Qualified Code(s): J18.9 - Pneumonia, unspecified organism Patient Disposition: Home, Self-Care Condition: Stable Instructions: Antibiotic Form, Pneumonia (ED) Additional Instructions: Take medications as prescribed. Follow-up with primary care provider. 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 cholecalciferol (vitamin D3) 125 mcg (5,000 unit) capsule 125 mcg PO DAILY mecobalamin (vitamin B12) 5,000 mcg tablet,disintegrating 5,000 mcg PO 3XW Galzin 50 mg (zinc) capsule 50 mg PO DAILY Mounjaro 2.5 mg/0.5 mL pen injector 2.5 mg subcut WEEKLY 28 Days Qty: 2 5RF citalopram 40 mg tablet 40 mg PO DAILY Qty: 90 3RF oxybutynin chloride 5 mg tablet extended release 24hr 5 mg PO DAILY Qty: 90 3RF lisinopril 20 mg tablet 20 mg PO DAILY Qty: 90 3RF lansoprazole 30 mg capsule,delayed release(DR/EC) 30 mg PO DAILY Qty: 90 3RF metoprolol succinate 50 mg tablet extended release 24 hr 50 mg PO DAILY Qty: 90 3RF diclofenac sodium 75 mg tablet,delayed release (DR/EC) See Rx Instructions .ROUTE .COMPLEX Qty: 90 3RF Dose Instruction: TAKE 1 TABLET DAILY DO NOT TAKE OTHER NSAIDS Rx Instructions: TAKE 1 TABLET DAILY DO NOT TAKE OTHER NSAIDS Follow-up/Referrals: Olive Bianchi NP [Primary Care Provider] - 2 Weeks Stand Alone Forms: Work/School Release IP Time of Disposition: 14:01
== END 2024-04-01 14:02 | disposition home or self-care (01) ==
PROVIDERS: Emergency Provider Nurse Practitioner Family; PCP Nurse Practitioner Family
DX: J18.9 Pneumonia, unspecified organism (principal); K21.9 Gastro-esophageal reflux disease without esophagitis; I10 Essential (primary) hypertension; E78.5 Hyperlipidemia, unspecified; R73.03 Prediabetes; M17.12 Unilateral primary osteoarthritis, left knee; E66.01 Morbid (severe) obesity due to excess calories; Z68.41 Body mass index [BMI] 40.0-44.9, adult; F41.9 Anxiety disorder, unspecified; E53.8 Deficiency of other specified B group vitamins
CPT/HCPCS: 99213; G0463

== ENCOUNTER 2024-09-17 12:33 | Emergency (ER) | payer OTHER, SELFPAY ==
--- OUTSIDE RECORDS SUMMARY | 2024-09-17 12:39 | XMS_ITS | Continuity of Care Document ---
Author Organization [facility] Address [address] [place] [address] Phone Care Team Providers Care Inside Sales Coordinator Name Role Phone Unavailable Unavailable Unavailable Procedures Procedure Date Carpal tunnel surgery Postop followup visit Carpal tunnel surgery Arm Sling W/ Foam Pad Office/outpatient visit,[facility] 2011 Advance Directives Directive Yes / No Effective Date File Name No Information Encounters Encounter Description Practice Location Reason(s) For Visit Diagnoses Date Provider Providers Copied on Encounter [facility], [address], [place], [place], [id number], tel:[phone] [facility] CARPAL TUNNEL SYNDROME Apr-2 4-201 2 No Information [facility], [address], [place], [place], [id number], [place] tel:[phone] [email or web address] CARPAL TUNNEL SYNDROME Apr-2 0-201 2 No Information [facility], [address], [place], [place], [id number], [place] tel:[phone] [facility] CARPAL TUNNEL SYNDROME Apr-1 0-201 2 No Information Office/outpat ient visit,[facility], [address], [place], [place], [id number], [place] tel:[phone] [facility] CARPAL TUNNEL SYNDROME Apr-0 2-201 2 No Information Family History Family Member Type Diagnosis Age At Onset No Information Payers Payer name Insurance type Covered green party ID Authoriza tidiamond(s) [facility] Raz Joseph CI [id number] William Isaacs CI [id number] Social History Type Description Quantity Date Captured Comments Sex Female Smoking Status No Information Chief Complaint And Reason For Visit No Information Reason For Referral Reason For Referral No Information History Of Present Illness Encounter Date Complaint History Of Prese nt Illness No Information Functional Status Date Functional Assessmen t No Information Instructions Date Instruction Additional Infor mation No Information Assessments Type Assessment Date No Information Patient Care Teams Name Effective Dates (start - stop) Status Members No Information
--- OUTSIDE RECORDS SUMMARY | 2024-09-17 12:39 | XMS_ITS | Clinical Summary ---
Author Organization [facility] [address] Address [address] [place] [address] Care Team Providers Care Technical Specialist Name Role Phone Robin Bianchiissa DEB Primary Care Provider [phone] Allergies Active Allergy Reactions Criticality Noted Date Comments Sulfa Rash Medium 01/03/[address] (VOLTAREN) 75 mg EC tablet Take 1 tablet (75 mg total) by mouth 4 Active lisinopriL (PRINIVIL,ZESTR IL) 20 mg tablet Take 1 tablet (20 mg total) by mouth 2 Active citalopram (CeleXA) 40 mg tablet Take 1 tablet (40 mg total) by mouth 4 Active metoprolol XL (TOPROL-XL) 50 mg extended release tablet Take 1 tablet (50 mg total) by mouth 4 Active buPROPion XL (WELLBUTRIN XL) 150 mg 24 hr tablet Take 1 tablet (150 mg total) by mouth 4 Active oxyBUTYnin XL (DITROPAN-XL) 5 mg 24 hr tablet Take 1 tablet (5 mg total) by mouth 4 Active lansoprazole (PREVACID) 30 mg capsule Take 1 capsule (30 mg total) by mouth 4 Active ascorbic acid (vitamin C) 1,000 mg tablet Take 1 tablet (1,000 mg total) by mouth Active clobetasoL (TEMOVATE) 0.05 % ointment Apply topically as needed Active pimecrolimus (ELIDEL) 1 % cream Apply topically as needed Active cyanocobalamin, vitamin B-12, 5,000 mcg capsule Take 5,000 mcg by mouth Active magnesium gluconate (MAGONATE) 27.5 mg magne- sium (500 mg) tabletIndicatio ns:hypomagnesem ia Take 1 tablet (500 mg total) by mouth Active cholecalciferol (VITAMIN D-3) 2000 unit tablet 1 tablet (2,000 Units total) Active diphenhydrAMINE 25 mg capsule Take 1 tablet/capsule (25 mg total) by mouth as needed for itching Active tacrolimus (PROTOPIC) 0.1 % ointment Active Active Problems No known active problems Immunizations Immunization Administration Dates Next Due Influenza, Quadrivalent, Spl it, Preservative Free, Intramuscular 03/06/2018 Tdap 10/28/2020 Surgical History Surgery Date Site/Laterality Comments SECTION 05/08/1989 - 05/07/19901989 and 1992 TUBAL LIGATION 05/08/1996 - 05/07/1997 Medical History Medical History Date Comments Depression with anxiety 2009 Hypertension History of carpal tunnel surgery Carpal Tunnel x2 S/P ACL reconstruction Family History Medical History Relation Name Comments COPD Father Lymphoma Mother Relation Name Status Comments Father Mother Social History Tobacco Use Types Packs/Day Years Used Date Smoking Tobacco: Never Passive Smoke Exposure: Never Smokeless Tobacco: Never Tobacco Cessation:Counseling Given: No Personal Safety Answer Date Recorded Getting School Help Needed Not on file 07/21 Comments Unknown Sex and Gender Information Value Date Recorded Sex Assigned at Not on file 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 Gender Identity Not on file Sexual Orientation Not on file Obstetrics History Last Filed Vital Signs Vital Sign Reading Time Taken Comments Blood Pressure 135/86 11/08/2023 8:15 AM CDT Pulse 64 11/08/2023 8:15 AM CDT Temperature 36.8 C (98.3 F) 11/08/2023 8:15 AM CDT Respiratory Rate - - Oxygen Saturation 97% 11/08/2023 8:15 AM CDT Inhaled Oxygen Concentration - - Weight 120.7 kg (266 lb) 01/03/2024 4:37 PM CDT Height 162.6 cm (5' 4 ) 01/03/2024 4:37 PM CDT Body Mass Index 45.66 01/03/2024 4:37 PM CDT Plan of Treatment Health Maintenance Due Date Last Done Comments Breast Cancer Screening-Mammogram 1969 Cervical Cancer Screening 1969 Colon Cancer Screening-Colonoscopy 1969 Depression Screening 1969 Hepatitis C Screening 1969 Hepatitis B Screening 1987 Regular Well Visit/Exam 18-64 1987 Zoster Vaccine (1 of 2) 2019 Influenza Vaccine (Season Ended) 2025 03/06/20 18 DTaP/Tdap/Td Vaccine (2 - Td or Tdap) 10/28/2030 10/28/2020 Pneumococcal vaccine <65 Aged Out No longer eligible based on patient's age to complete this topic Insurance UHC CHOICE PLUS [facility] CHOICE PLUS CIGNA [facility] CHOICE PLUS CIGNA Care Teams Technical Specialist Relationship Specialty Start Date End Date Olive Bianchi NP [address] [address] PCP - General Family Medicine 01/03/24
--- OUTSIDE RECORDS SUMMARY | 2024-09-17 12:39 | XMS_ITS | Referral Summary ---
Author Organization [facility] [address] Address [address] [place] [address] Care Team Providers Care Napping Machine Operator Name Role Phone Robin Bianchiissa DEB Primary Care Provider [phone] Allergies Active Allergy Reactions Criticality Noted Date [...] it, Preservative Free, Intramuscular 03/06/2018 Tdap 10/28/2020 Social History Tobacco Use Types Packs/Day Years Used Date Smoking Tobacco: Never Passive Smoke Exposure: Never Smokeless Tobacco: Never Tobacco Cessation:Counseling Given: No Personal Safety Answer Date Recorded Getting School Help Needed Not on file 07/21 Comments Unknown Sex and Gender Information Value Date Recorded Sex Assigned at Not on file 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 Gender Identity Not on file Sexual Orientation Not on file Last Filed Vital Signs Vital Sign Reading [...] 01/03/2024 4:37 PM CDT Plan of Treatment Not on file Insurance [facility] CHOICE PLUS [facility] H[facility]/PPO Address: [address] [address] [place] [id number] [employer] CHOICE [facility]US [facility] HMO/PPO Address: [address] [place] [address] CIGNA [facility] CHOICE PLUS [facility] HMO/PPO Address: [facility] [address] [place] [address] [employer] Care Teams Napping Machine Operator Relationship Specialty Start Date End Date Olive Bianchi NP [address] [address] PCP - General Family Medicine 01/03/24
[2024-09-17 12:59] VITALS: BP 145/81; PULSE 68; RESP 16; TEMP 36.3; O2SAT 99
--- NOTE | 2024-09-17 13:14 | ED.URI ---
HPI - URI/Sore Throat General Chief Complaint: Upper Respiratory Infection Stated Complaint: sinus infection Time Seen by Provider: 09/17/24 13:18 Source: patient, RN notes reviewed and old records reviewed Mode of arrival: ambulatory Limitations: no limitations History of Present Illness HPI Narrative: 54-year-old female presents to the [facility] with 4 day history of scratchy throat, cough, nasal congestion and nasal drainage. Denies any fevers, chest pain abdominal pain. Has been taking DayQuil and NyQuil. Related Data Home Medications ?Medication ?Instructions ?Recorded ?Confirmed ?Last Taken ?Type bupropion HCl 150 mg 24 hr tablet, 150 mg PO QAM 10/19/21 05/09/24 Unknown History extended release cholecalciferol (vitamin D3) 125 125 mcg PO DAILY 10/19/21 05/09/24 Unknown History mcg (5,000 unit) capsule mecobalamin (vitamin B12) 5,000 5,000 mcg PO 3XW 10/19/21 05/09/24 Unknown History mcg disintegrating tablet zinc acetate 50 mg (zinc) capsule 50 mg PO DAILY 10/19/21 05/09/24 Unknown History (Galzin) Allergies Allergy/AdvReac Type Severity Reaction Status Date / Time Sulfa (Sulfonamide Allergy Mild Hives Verified 09/17/24 13:04 Antibiotics) Review of Systems Review of Systems: All systems reviewed & are unremarkable except as noted in HPI and below Constitutional: Constitutional: Reports no additional constitutional complaints ENT: Reports as per HPI, Reports nasal congestion, Reports post nasal drip and Reports sore throat Cardiovascular: Cardiovascular: Reports no additional cardiovascular complaints, Denies chest pain and Denies dyspnea Respiratory: Respiratory: Reports as per HPI, Denies chest congestion, Reports cough and Denies dyspnea Musculoskeletal: Musculoskeletal: Reports no additional musculoskeletal complaints Integumentary/Breasts: Skin/Breast: Reports system reviewed and no additional complaints, except as docu PMFSH Past Medical History Medical History OAB (overactive bladder) Incontinence Elevated fasting glucose Osteoarthritis of left knee severe Depression Anxiety Left knee pain Myalgia Dyslipidemia FPC use of drug Acute non-recurrent maxillary sinusitis Obstructive sleep apnea Sarcoidosis of skin Low back pain radiating to left leg BMI 38.0-38.9,adult B12 deficiency Morbid obesity with BMI of 40.0-44.9, adult DHRUV positive Morbid obesity with BMI of 45.0-49.9, adult Prediabetes Hypertension Acid reflux Achilles tendon injury Osteoarthritis Surgical History Surgical History History of endometrial ablation S/P ACL reconstruction History of carpal tunnel release H/O tubal ligation H/O dilation and curettage Delivery by section x2 Family History Family History Father Hypertension Mother Breast cancer Lymphoma Social History Social History Smoking status: Never smoker Alcohol intake: never Substance use: never Lack of Transportation: No Lack of Food: Never True Current Housing: I Have Housing Concerned About Future Housing: No Difficulty Paying Gas/Electric Bills: No Difficulty Paying for Meds: No Currently Unemployed: No Education: Master's Degree or Higher Difficulty w/ Childcare or Family Care: No Living arrangements: with family Spiritual care concerns: No Comments At the time of my signature, I reviewed and agree with the nursing past medical, surgical, social, and family history. There is no relevant family history pertinent to the patient complaint. Exam Const: General: cooperative, healthy appearing, comfortable, no acute distress, well developed, alert and well nourished Nutritional Appearance: well nourished and obese Orientation/consciousness: patient oriented x3 Limitations: no limitations HENMT: Head: normal to inspection Ears: hearing grossly normal bilaterally, external ears normal, TM's normal bilaterally, EAC's normal, mastoids normal and no periauricular adenopathy Mouth: Yes Normal oral and palatal mucosa present, Yes lip normal, Yes tongue normal and Yes moist mucous membranes Throat: posterior oropharynx normal, uvula midline, postnasal drainage and no uvular edema Eyes: General: appearance normal, both eyes and all related structures Alignment and Position: alignment normal Neck: Neck: normal visual inspection, full ROM, no lymphadenopathy and no meningeal signs Chest: Chest palpation & inspection: normal inspection of the chest Resp: Effort & Inspection: normal respiratory effort and able to speak in complete sentences Auscultation: clear to auscultation bilaterally, no crackles, no rales, no rhonchi and no wheezes Cardio: Rate: regular rate Skin: General skin exam: normal color and no rashes or lesions noted Neuro: General: patient oriented x3, gait normal, moves all extremities and no meningeal signs Cognition (Neuro): normal cognition Speech: normal speech Gait exam (Neuro): Normal gait present Extrem: General: normal to inspection, full ROM, capillary refill normal and normal gait Psych: Appearance: grossly normal and well kempt Mental Status: mental status grossly normal Speech and movement: Normal speech and movement present and Clear speech present Affect: normal affect Attitude: cooperative Course Course Level of Care: Express Care Visit Vital Signs Vital signs: Vital Signs Temperature 97.3 F L 09/17/24 12:59 Pulse Rate 68 09/17/24 12:59 Respiratory Rate 16 09/17/24 12:59 Blood Pressure 145/81 H 09/17/24 12:59 Pulse Oximetry 99 09/17/24 12:59 Oxygen Delivery Room Air 09/17/24 12:59 Temperature 97.3 F L 09/17/24 12:59 Pulse Rate 68 09/17/24 12:59 Respiratory Rate 16 09/17/24 12:59 Blood Pressure 145/81 H 09/17/24 12:59 Pulse Oximetry 99 09/17/24 12:59 Oxygen Delivery Room Air 09/17/24 12:59 Reviewed MDM - URI/Sore Throat MDM Narrative Medical decision making narrative: Patient sitting in vitals stable. Patient presents with URI symptoms x4 days. Patient's flu COVID and strep were all negative in clinic. Consistent with viral sinusitis, patient appropriate for outpatient treatment with close follow-up Discharge instructions reviewed with patient, as well as provided in writing per nursing staff. The instructions also include specific and strict return/GO TO THE ER as well as f/u information. All questions have been answered, and the patient deny any further questions with discharge and discharge plan. Some parts of this dictation were generated by voice recognition software and may contain typographical and/or grammatical inaccuracies. Differential Diagnosis Differential diagnosis: Likely upper respiratory infection, otitis media, sinusitis, viral infection, bronchitis, influenza and pharyngitis Lab Data Labs: Lab Results 09/17/24 09/17/24 09/17/24 Range/Units 13:27 13:38 13:39 POC Influenza A Ag Negative (Negative) POC Influenza B Ag Negative (Negative) POC SARS CoV-2 Ag Negative (Negative) POC Grp A Strep Screen Negative (Negative) Reviewed Critical Care Time Critical Care Time Critical Care Time: No Discharge Plan Discharge Clinical Impression: Sinusitis Patient Disposition: Home Condition: Stable Instructions: Antibiotic Form, Sinusitis (ED) Additional Instructions: Your rapid strep swab was negative today at [facility]. A throat culture will be sent to the laboratory for further testing. If the test is positive, you will receive a phone call within 48 hours and an appropriate antibiotic will be initiated at that time. Your rapid COVID test were negative Your rapid flu test was negative Your symptoms are likely due to a viral illness, which is not treated with antibiotics. Typically viral infections last 7-10 days, can linger for couple of weeks. It is very important to treat your symptoms. Drink plenty of water, Gatorade, Pedialyte, ice pops or Jell-O. -Alternate Tylenol and Motrin per package directions for fever or pain. You can alternate every 4 hours -Antihistamine medication such as Zyrtec/Claritin/Trista during the day can help improve symptoms. -doing daily nasal irrigations can help relieve pressure your sinuses. Things like a Neti pot -Use Flonase twice a day for 5 days then daily to help reduce the inflammation and dry up your sinuses. -You can also use Coricidin HBP orMucinex. Be sure to drink plenty of water with this medication at least 8 ounces with every dose and it is important to drink 8 to 10 glasses of water per day. Water is a natural decongestant -Eat and drink things that are easy to swallow, like tea or soup, or popsicles. -Oral rinses such as: Salt water gargles and/or may use topical anesthetic (eg. Chloraseptic spray) or lozenges to relieve dryness or throat pain). -Frequent hand washing or hand personal protection specialist is one of the best ways to prevent spread of infection. -Using a vaporizer or humidifier at night will also help thin secretions and help with coughing up phlegm. -Follow up with primary care provider in 7-10 days if condition is not improving - For new or worsening symptoms go directly to the nearest ER Patient Language: Lao Prescriptions: No Action bupropion HCl 150 mg tablet extended release 24 hr 150 mg PO QAM Patient Comments: per LOAN EXAMINER cholecalciferol (vitamin D3) 125 mcg (5,000 unit) capsule 125 mcg PO DAILY mecobalamin (vitamin B12) 5,000 mcg tablet,disintegrating 5,000 mcg PO 3XW Galzin 50 mg (zinc) capsule 50 mg PO DAILY oxybutynin chloride 10 mg tablet extended release 24hr 10 mg PO DAILY Qty: 90 3RF cyclobenzaprine 10 mg tablet 5 - 10 mg PO TID PRN (Reason: muscle spasm) Qty: 30 0RF citalopram 40 mg tablet 40 mg PO DAILY Qty: 90 3RF diclofenac sodium 75 mg tablet,delayed release (DR/EC) See Rx Instructions .ROUTE .COMPLEX Qty: 90 3RF Dose Instruction: TAKE 1 TABLET DAILY DO NOT TAKE OTHER NSAIDS Rx Instructions: TAKE 1 TABLET DAILY DO NOT TAKE OTHER NSAIDS lisinopril 20 mg tablet 20 mg PO DAILY Qty: 90 3RF metoprolol succinate 50 mg tablet extended release 24 hr 50 mg PO DAILY Qty: 90 3RF lansoprazole 30 mg capsule,delayed release(DR/EC) 30 mg PO DAILY Qty: 90 3RF Follow-up/Referrals: Olive Bianchi NP [Primary Care Provider] - 2 Weeks ( [facility] follow-up) Stand Alone Forms: Work/School Release IP Time of Disposition: 13:32
[2024-09-17 13:39] LABS: EDSTREPNEGPOS1 Negative (Negative)
[2024-09-17 13:40] LABS: EDCOVIDSCREEN Negative (Negative)
[2024-09-17 13:41] LABS: EDINFLUASCREEN Negative (Negative); EDINFLUBSCREEN Negative (Negative)
== END 2024-09-17 13:38 | disposition home or self-care (01) ==
PROVIDERS: Emergency Provider Nurse Practitioner; PCP Nurse Practitioner Family
DX: J32.9 Chronic sinusitis, unspecified (principal); Z20.822 Contact with and (suspected) exposure to COVID-19; E78.5 Hyperlipidemia, unspecified; I10 Essential (primary) hypertension; R73.03 Prediabetes; M19.90 Unspecified osteoarthritis, unspecified site; K21.9 Gastro-esophageal reflux disease without esophagitis; F41.9 Anxiety disorder, unspecified; F32.A Depression, unspecified; E53.8 Deficiency of other specified B group vitamins; Z68.41 Body mass index [BMI] 40.0-44.9, adult; E66.01 Morbid (severe) obesity due to excess calories
CPT/HCPCS: 87081; 87426; 87804; 87880; 99213; G0463

== ENCOUNTER 2025-03-20 13:58 | Outpatient (CLI) | payer OTHER, SELFPAY ==
--- NOTE | ~2025-03-20 | MM_ITS ---
EXAMINATION: MM screening [facility] BI w michael HISTORY: Screening TECHNIQUE: Craniocaudal and mediolateral oblique 3-D tomosynthesis images were obtained and synthetic 2-D images were generated. CAD analysis was submitted and interpreted. COMPARISON: 02/26/2024 BREAST PARENCHYMAL COMPOSITION: Not dense: There are scattered areas of fibroglandular density. FINDINGS: There is no evidence of suspicious mass, calcification, or architectural distortion to suggest malignancy in either breast. There has been no suspicious interval change. IMPRESSION: 1. No mammographic evidence of malignancy. 2. Recommend routine screening mammography in one year. BI-RADS Category 1: Negative Reviewed, dictated and finalized at location B. OM FEED MILL OPERATOR
--- OUTSIDE RECORDS SUMMARY | 2025-03-20 14:32 | XMS_ITS | Clinical Summary ---
Author Organization [facility] Address [address] [place] [address] Care Team Providers Care Experimental Flight Test Mechanic Name Role Phone Olive Bianchi STEEL SPAR OPERATOR-DIE CASTING MACHINE SETTER Primary Care Provider Source Comments [facility],non-owned Affiliates and Associated Physician Practices is amultiple site organization consisting of ambulatory clinics and hospital sitesin [place], [place], [place] and [place]. This disclosure is being madepursuant to the Care Everywhere program and may not contain all information available regarding this patient. Last updated 18.[facility] Allergies Active Allergy Reactions Criticality Noted Date Comments Sulfa Drugs Rash Low 01/04/2016 Medications * Be aware that medications may not be up to date on this document. Alwaysverify current medications with the patient. Lansoprazole (PREVACID PO) Take 30 mg by mouth once daily Active Citalopram Hydrobromide (CELEXA PO) Take 40 mg by mouth once daily Active Metoprolol Succinate (TOPROL XL PO) Take 50 mg by mouth once daily Active Cholecalciferol (VITAMIN D-3 PO) Take by mouth once daily Active BuPROPion HCl (WELLBUTRIN PO) Take 150 mg by mouth once daily Active DICLOFENAC PO Take 75 mg by mouth once daily Active oxybutynin (DITROPAN) 5 MG tablet Take 1 (one) tablet by mouth once daily Active lisinopril (Prinivil; Zestril) 20 MG tablet 03/07/2022 Active Zinc Sulfate (ZINC 15 PO) Active Ascorbic Acid (KERRY-C PO) Active Active Problems No known active problems Family History Medical History Relation Name Comments Hypertension Father Cancer Mother breast and lymp betsy Hypertension Mother Relation Name Status Comments Father Mother Social History Tobacco Use Types Packs/Day Years Used Date Smoking Tobacco: Never Smokeless Tobacco: Never Tobacco Cessation:Counseling Given: Not Answered Alcohol Use Standard Drinks/Week Comments Not Currently 0 (1 standard drink = 0.6 oz pur e alcohol) rarely Comments No Sex and Gender Information Value Date Recorded Sex Assigned at Not on file Legal Sex Female 7:56 AM CDT Gender Identity Not on file Sexual Orientation Not on file Last Filed Vital Signs Vital Sign Reading Time Taken Comments Blood Pressure 134/80 03/08/2023 12:38 PM CDT Pulse 70 01/29/2020 2:40 PM CDT Temperature 36.6 C (97.9 F) 01/29/2020 2:40 PM CDT Respiratory Rate 16 01/29/2020 2:40 PM CDT Oxygen Saturation 98% 01/29/2020 2:40 PM CDT Inhaled Oxygen Concentration - - Weight 109.8 kg (242 lb) 03/08/2023 12:38 PM CDT Height 167.6 cm (5' 6) 04/13/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 Body Mass Index 39.06 04/13/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 Plan of Treatment Health Maintenance Due Date Last Done Comments COLON MONITORING 1969 COLONOSCOPY - COLON CA SCREENING 1969 CT COLONOGRAPHY - COLON CA SCREENING 1969 FIT - COLON CA SCREENING 1969 FLEX SIG - COLON CA SCREENING 1969 LIPID TESTING 1969 MAMMOGRAM 1969 HIV SCREENING 1984 HEPATITIS C SCREENING 05/05/1987 DTAP/TDAP/TD VACCINES (1 - Tdap) 1988 HEPATITIS B VACCINE (1 of 3 - 19+ 3-dose series) 1988 PAP SMEAR 1990 PNEUMOCOCCAL VACCINE 50+ (1 of 1 - PCV) 2019 ZOSTER VACCINE (1 of 2) 2019 SCREENING FOR DIABETES 03/23/2022 DEPRESSION SCREENING 05/08/2024 COVID-19 VACCINE (1 - 2023-2 5 season) 2025 INFLUENZA VACCINE (#1) 2025 03/06/2018 COLOGUARD (AGES 45-75) - COL ON CA SCREENING 05/07/2025 05/07/2022 Colorectal Cancer Screening 05/07/2025 HIB VACCINE Aged Out No longer eligi ble based on patient's age to complete this topic HPV VACCINE Aged Out No longer eligi ble based on patient's age to complete this topic MENINGOCOCCAL (Group B) VACC INE SHARED DECISION-MAKING Aged Out No longer eligibl e based on patient's age to complete this topic MENINGOCOCCAL GROUPS A/C/Y/W VACCINE Aged Out No longer eligible b ased on patient's age to complete this topic Insurance [facility] [place] [address] [place] [address] Care Teams Experimental Flight Test Mechanic Relationship Specialty Start Date End Date Olive Bianchi, STEEL SPAR OPERATOR-DIE CASTING MACHINE SETTER [address] [address] PCP - General Nurse Practitioner 03/08/23
--- OUTSIDE RECORDS SUMMARY | 2025-03-20 14:32 | XMS_ITS | Clinical Summary ---
Author Organization [facility] [place] [address] Address [address] [place] [address] Care Team Providers Care Loan Review Officer Name Role Phone Olive Bianchi NP Primary Care Provider [phone] Allergies Active Allergy Reactions Criticality Noted Date Comments Sulfa Rash Medium 01/03/2024 Medications lisinopriL (PRINIVIL,ZESTRIL) 20 mg tabletIndications:hy pertension Take 1 tablet (20 mg total) by mouth every morning 03/07/20 22 Active citalopram (CeleXA) 40 mg tabletIndications:An xiety with Depression Take 1 tablet (40 mg total) by mouth every morning 09/27/19 24 Active metoprolol XL (TOPROL-XL) 50 mg extended release tabletIndications:hy pertension Take 1 tablet (50 mg total) by mouth every morning 09/14/19 24 Active buPROPion XL (WELLBUTRIN XL) 150 mg 24 hr tabletIndications:An xiety with Depression Take 1 tablet (150 mg total) by mouth every morning 08/13/19 24 Active lansoprazole (PREVACID) 30 mg capsuleIndications:S ymptomatic Gastroesophageal Reflux Disease Take 1 capsule (30 mg total) by mouth every morning 08/28/19 24 Active clobetasoL (TEMOVATE) 0.05 % ointment Apply 1 Application topically 2 (two) times a day as needed (sarcoidosis) Pt states last use was 6 weeks ago Active magnesium gluconate (MAGONATE) 27.5 mg magne- sium (500 mg) tabletIndications:hy pomagnesemia Take 1 tablet (500 mg total) by mouth every morning Active cholecalciferol (VITAMIN D-3) 2000 unit tabletIndications:mcguire pplement Take 1 tablet (2,000 Units total) by mouth every morning Active diphenhydrAMINE 25 mg capsule Take 1 tablet/capsule (25 mg total) by mouth every 4 (four) hours as needed for allergies Active oxyBUTYnin XL (DITROPAN-XL) 5 mg 24 hr tabletIndications:Bl adder Hyperactivity Take 2 tablets (10 mg total) by mouth every morning 10/02/19 Active Active Problems Problem Noted Date Diagnosed Date Osteoarthritis of left knee, unspecified osteoarthritis type 10/01/2024 Primary osteoarthritis of left knee 09/20/2024 Immunizations Immunization Administration Dates Next Due Influenza, [...] Relation Name Comments COPD Father Lymphoma Mother Anesthesia problems Neg Hx Malig Hypertension Neg Hx Malig Hyperthermia Neg Hx Pseudochol deficiency Neg Hx Relation Name Status Comments Father Mother Social History Tobacco Use Types Packs/Day Years Used Date Smoking Tobacco: Never Passive Smoke Exposure: Never Smokeless Tobacco: Never Tobacco Cessation:Counseling Given: No AUDIT-C Answer Date Recorded Q1: How often do you have a drink containing alc ohol? Monthly or less 09/26/2024 Q2: How many drinks containi ng alcohol do you have on a typical day when you are drinking? 1 or 2 09/26/2024 Q3: How often do you have si x or more drinks on one occasion? Never 09/26/2024 Personal Safety Answer Date Recorded Have you ever been in or are you currently in a harmful physical or emotional relationship or is someone making you feel afraid or unsafe? 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 Gender Identity Not on file Sexual Orientation Not on file Last Filed Vital Signs Vital Sign Reading Time Taken Comments Blood Pressure 142/73 10/02/2024 8:13 AM CDT Pulse 68 10/02/2024 8:13 AM CDT Temperature 36.3 C (97.4 F) 10/02/2024 8:13 AM CDT Respiratory Rate 16 10/02/2024 8:13 AM CDT Oxygen Saturation 95% 10/02/2024 8:13 AM CDT Inhaled Oxygen Concentration - - Weight 121.1 kg (267 lb) 10/01/2024 8:28 AM CDT Height 167.6 cm (5' 6) 10/01/2024 8:28 AM CDT Body Mass Index 43.09 10/01/2024 8:28 AM CDT Plan of Treatment Health Maintenance Due Date Last Done Comments Breast Cancer Screening-Mammogram 1969 Cervical Cancer Screening 1969 Colon Cancer Screening-Colonoscopy 1969 Depression Screening 1969 Hepatitis C Screening 1969 Hepatitis B Screening 1987 Regular Well Visit/Exam 18-64 1987 Zoster Vaccine (1 of 2) 2019 Influenza Vaccine (#1) 2025 03/06/2018 DTaP/Tdap/Td Vaccine (2 - Td or Tdap) 10/28/2030 10/28/2020 Pneumococcal vaccine <65 Aged Out No longer eligible based on patient's age to complete this topic Medical Devices Implanted Type Area Tax Examiner Device Identifier Shelf Expiration Date Model / Serial / Lot [employer] Tibial Baseplate Knee Porous Fixed Attune Affixium Size 6 Titanium [id number] - [id number] Implanted:Qty: 1 on 10/01/2024 at [facility] Left: Knee [employer] 08/05/2033 [id number] / / [id number] [employer] Attune Cruciate Retain Cementless Knee Left 5 Narrow Component [id number] - [id number] Implanted:Qty: 1 on 10/01/2024 at [facility] Left: Knee [employer] 07/05/2034 [id number] / / [id number] [employer] Insert Tibial Knee Fixed Lm Posterior Stabilized Attune 8mm Size 5 Polyethylene [id number] - [id number] Implanted:Qty: 1 on 10/01/2024 at [facility] Left: Knee [employer] 05/07/2032 [id number] / / [id number] Insurance [facility] CHOICE PLUS [facility] CHOICE PLUS CIG[employer] [facility] CHOICE PLUS CIG[employer] Advance Directives For more information, please contact: [phone] * Full Code (Latest Code Status on File) Date Activated Date Inactivated Comments 10/01/2024 1:50 PM 10/02/2024 12:57 PM Care Teams Loan Review Officer Relationship Specialty Start Date End Date Olive Bianchi NP [address] [address] PCP - General Family Medicine 01/03/24
== END 2025-03-20 13:59 | disposition home or self-care (01) ==
LOC: CHSIMG 13:59
PROVIDERS: PCP Nurse Practitioner Family; Visit Provider Obstetrics & Gynecology Gynecology
DX: Z12.31 Encounter for screening mammogram for malignant neoplasm of breast (principal)
CPT/HCPCS: 77063; 77067

== ENCOUNTER 2025-05-02 07:22 | Outpatient (CLI) | payer OTHER, SELFPAY ==
--- NOTE | ~2025-05-02 | MR_ITS ---
EXAMINATION: MR lumbar spine wo con DATE: 05/02/2025 07:54 INDICATION: Scoliosis, unspecified. TECHNIQUE: Magnetic resonance imaging (MRI) of the lumbar spine was performed without intravenous contrast. COMPARISON: Lumbar spine MRI 08/26/2016 FINDINGS: There is 21 degrees levoscoliosis of lumbar spine. There is mild chronic anterior wedging of T12 vertebral body. There is mildly decreased disc height at L1-L2, moderately decreased disc height at L2-L3, L3-L4, and L4-L5, and severely decreased disc height at L5-S1. The distal spinal cord signal intensity is normal. The conus medullaris is at L1. The following disc levels are specifically discussed: L1-L2: The disc does not extend beyond the endplate margin. There is severe bilateral facet joint osteoarthritis. There is no neural foraminal stenosis. There is no central canal stenosis. L2-L3: The disc is bulging and has an annular fissure. There is severe bilateral facet joint osteoarthritis. There is mild bilateral neural foraminal stenosis. There is mild central canal stenosis. L3-L4: The disc is bulging and has an annular fissure. There is severe bilateral facet joint osteoarthritis. There is moderate right and mild left neural foraminal stenosis. There is moderate central canal stenosis. L4-L5: The disc is bulging. There is severe bilateral facet joint osteoarthritis. There is moderate bilateral neural foraminal stenosis. There is moderate central canal stenosis. L5-S1: The disc is bulging and has an annular fissure. There is severe bilateral facet joint osteoarthritis. There is moderate bilateral neural foraminal stenosis. There is mild central canal stenosis. IMPRESSION: 1. Severe lumbar spondylosis, mildly worsened from 08/26/2016. 2. Lumbar levoscoliosis. Reviewed, dictated and finalized at location E. NSED OPTICIAN
--- NOTE | ~2025-05-02 | XR_ITS ---
EXAMINATION: SCOLIOSIS DATE: 05/06/2025 7:34 VACATION GUIDE INDICATION: Scoliosis TECHNIQUE: Standing AP and lateral views of the thoracolumbar spine FINDINGS: There are 12 rib bearing thoracic vertebral bodies and 5 non-rib bearing lumbar type vertebral bodies. There is no listhesis, compression deformity or vertebral body anomalies. There is moderate thoracic and lumbar spondylosis. There is a shaped scoliosis of the thoracolumbar spine. There is 7 degrees dextrocurvature of the thoracic spine centered at approximately T7. The there is 27 degrees levoscoliosis of the lumbar spine centered at L3. IMPRESSION: 1. S-shaped scoliosis of the thoracolumbar spine. 2. Moderate thoracic and lumbar spondylosis. Reviewed, dictated and finalized at location O. TION GUIDE
--- NOTE | ~2025-05-02 | XR_ITS ---
XR lumbar spine min 4V 05/02/2025 08:19 Indication: Scoliosis Procedure: 5 views lumbar spine Comparison: No prior studies for comparison. Findings: There is levoscoliosis centered at L1-2. There is disc narrowing at all lumbar levels with marginal osteophyte formation. There is multilevel facet hypertrophy. No acute fracture or traumatic malalignment. Sacral foramen are symmetric. Impression: 1: Moderate-severe lumbar spondylosis with levoscoliosis. Reviewed, dictated and finalized at location O. NESS CONTINUITY GLOBAL DIRECTOR Impression: 1: Moderate-severe lumbar spondylosis with levoscoliosis.
--- OUTSIDE RECORDS SUMMARY | 2025-05-02 07:27 | XMS_ITS | Clinical Summary ---
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 Gender Identity Not on file Sexual Orientation [...] this topic Medical Devices Implanted Type Area Lighting Engineer Device Identifier Shelf Expiration Date Model / Serial / Lot [employer] Tibial Baseplate Knee Porous Fixed Attune Affixium Size 6 Titanium [id number] - [id number] Implanted:Qty: 1 on 10/01/2024 at [facility] Left: Knee [employer] 08/05/2033 [id number] / / [id number] [employer] Attune Cruciate Retain Cementless Knee Left 5 Narrow Component [id number] - [id number] Implanted:Qty: 1 on 10/01/2024 at [facility] Left: Knee [employer] 07/05/2034 [id number] / / [id number] [employer] Insert Tibial Knee Fixed Lm Posterior Stabilized Attune 8mm Size 5 Polyethylene [id number] - [id number] Implanted:Qty: 1 on 10/01/2024 at [facility] Left: Knee [employer] 05/07/2032 [id number] / / [id number] Insurance [facility] CHOICE PLUS [facility] CHOICE PLUS CIGNA [facility] CHOICE PLUS CIG[employer] Advance Directives For more information, please contact: [phone] * Full Code (Latest Code Status on File) Date Activated Date Inactivated Comments 10/01/2024 1:50 PM 10/02/2024 12:57 PM Care Teams Client Service Professional Relationship Specialty Start Date End Date Olive Bianchi NP [address] [address] PCP - General Family Medicine 01/03/24
== END 2025-05-02 07:23 | disposition home or self-care (01) ==
PROVIDERS: PCP Nurse Practitioner Family; Visit Provider Nurse Practitioner Adult Health
DX: M47.816 Spondylosis without myelopathy or radiculopathy, lumbar region (principal); M41.86 Other forms of scoliosis, lumbar region
CPT/HCPCS: 72082; 72110; 72148